=== PATIENT | male | born 1995 ===

== ENCOUNTER 2017-04-30 02:52 | Emergency (ER) | payer MEDICAID ==
[2017-04-30 02:52] VITALS: BMI 23.3
[2017-04-30 02:59] VITALS: RESP 16
[2017-04-30] MEDS ORDERED: Sodium Chloride 0.9% 1,000 ML IV STA (03:14)
--- NOTE | 2017-04-30 04:21 | CT ---
EXAM: CT Head Without Intravenous Contrast CLINICAL HISTORY: 22 years old, male; Pain; Headache TECHNIQUE: Axial computed tomography images of the head/brain without intravenous contrast. All CT scans at this facility use one or more dose reduction techniques, viz.: automated exposure control; ma/kV adjustment per patient size (including targeted exams where dose is matched to indication; i.e. head); or iterative reconstruction technique. Coronal and sagittal reformatted images were created and reviewed. COMPARISON: No relevant prior studies available. FINDINGS: Brain: No intracranial hemorrhage. No mass. No definite edema. Ventricles: No hydrocephalus. Bones/joints: No calvarial fracture. Soft tissues: Unremarkable. Mastoid air cells: No mastoid effusion. IMPRESSION: 1. No definite acute intracranial abnormality. 2. See sinus CT report for additional details.
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
--- NOTE | 2017-04-30 07:06 | ED PDOC ---
- ECG O2 Sat by Pulse Oximetry: 100 (RA) Medical Decision Making Medical Decision Making: recd 7am pending sobriety and re-eval Per report CT brain/Max facial neg for bleed/fracture 1215p improved, gait stable, clear speech DC from ED Disposition - Clinical Impression Clinical Impression: Alcohol abuse with intoxication delirium - POA Present On Arrival: None - Disposition Referrals: Alcoholics Anonymous [Outside] [facility] [Outside] Disposition: Routine/Home Disposition Time: 12:15 Condition: FAIR Instructions: Alcohol Intoxication (ED) Forms: [facility] (Congolese)
[2017-04-30 12:35] VITALS: BP 123/75; PULSE 85; TEMP 98.4
[2017-04-30 13:13] VITALS: O2SAT 100
== END 2017-04-30 12:35 | disposition home or self-care (01) ==
LOC: H.ER 02:52
DX: F10.129 Alcohol abuse with intoxication, unspecified (principal); S09.93XA Unspecified injury of face, initial encounter; Y04.0XXA Assault by unarmed brawl or fight, initial encounter; Y92.89 Other specified places as the place of occurrence of the external cause; D16.4 Benign neoplasm of bones of skull and face
CPT/HCPCS: 70450; 70486; 80320; 99282; J7040

== ENCOUNTER 2017-09-19 04:47 | Emergency (ER) | payer MEDICAID ==
[2017-09-19 04:47] VITALS: BMI 23.3
--- NOTE | 2017-09-19 05:30 | ED PDOC ---
HPI: Psych/Substance Abuse <EnmaMitzishanice Y - Last Filed: 09/19/17 06:51> Chief Complaint (Provider): ETOH abuse History Per: Patient History/Exam Limitations: no limitations Onset/Duration Of Symptoms: Hrs Current Symptoms Are (Timing): Still Present Modifying Factor(s): Alcohol Involuntary Hold By: None Additional Complaint(s): Prem Appiah is a 22 year old male, with no significant past medical history, who was brought to the emergency department via EMS for alcohol intoxication. 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 He admits to drink alcohol. He denies any vomiting, trauma or injuries. No further medical complaints. PMD: None provided. <Joselyn Garcia PA-C - Last Filed: 09/19/17 20:24> Time Seen by Provider: 09/19/17 05:03 Chief Complaint (Nursing): Alcohol Ingestion Past Medical History Vital Signs: Last Vital Signs Temp 97.5 F L 09/19/17 04:58 Pulse 81 09/19/17 04:58 Resp 16 09/19/17 04:58 BP 131/63 09/19/17 04:58 Pulse Ox 95 09/19/17 05:51 <Alie Norwood Y - Last Filed: 09/19/17 06:51> Reviewed: Historical Data, Nursing Documentation, Vital Signs Vital Signs: Last Vital Signs Temp 97.5 F L 09/19/17 04:58 Pulse 81 09/19/17 04:58 Resp 16 09/19/17 04:58 BP 131/63 09/19/17 04:58 Pulse Ox 95 09/19/17 04:58 - Medical History PMH: No Chronic Diseases - Surgical History Surgical History: No Surg Hx - Family History Family History: States: Unknown Family Hx - Social History Current smoker - smoking cessation education provided: No Alcohol: Social Drugs: Denies <Joselyn Garcia PA-C - Last Filed: 09/19/17 20:24> - Home Medications Home Medications: Ambulatory Orders Medication Instructions Recorded Unobtainable [Unobtainable] 09/30/14 - Allergies Allergies/Adverse Reactions: Allergies Allergy/AdvReac Type Severity Reaction Status Date / Time No Known Allergies Allergy Verified 09/19/17 05:00 Review of Systems ROS Statement: Except As Marked, All Systems Reviewed And Found Negative Constitutional: Positive for: Other (ETOH abuse) Gastrointestinal: Negative for: Vomiting <Joselyn Garcia PA-C - Last Filed: 09/19/17 20:24> Physical Exam - Reviewed Nursing Documentation Reviewed: Yes Vital Signs Reviewed: Yes - Physical Exam Comments: GENERAL APPEARANCE: Patient is awake, alert, oriented x3, in no acute distress. ETOH on breath SKIN: Warm, dry; (-) cyanosis HEAD: (-) scalp swelling, (-) scalp tenderness. EYES: (-) conjunctival pallor, (-) scleral icterus, (-) nystagmus. ENMT: Mucous membranes moist. Airway patent: (-) stridor. NECK: (-) tenderness, (-) stiffness, (-) lymphadenopathy. HEART AND CARDIOVASCULAR: (-) irregularity; (-) murmur, (-) gallop. CHEST AND RESPIRATORY: (-) rales, (-) rhonchi, (-) wheezes; breath sounds equal. ABDOMEN: Soft, (-) distention, (-) tenderness, (-) guarding. NEURO AND PSYCH: Mental status as above. Affect: flat glove printer: Intact. Pupils equal and reactive; EOMI; (-) facial asymmetry ; tongue and uvula midline. Strength symmetric. <Joselyn Garcia PA-C - Last Filed: 09/19/17 20:24> - ECG O2 Sat by Pulse Oximetry: 95 (RA) Pulse Ox Interpretation: Normal <Joselyn Garcia PA-C - Last Filed: 09/19/17 20:24> Medical Decision Making Medical Decision Makin:00 -Patient will be signed out to Dr. Andrade, pending sobriety. <Alie Norwood Y - Last Filed: 09/19/17 06:51> Medical Decision Making: Time: 05:03 Initial Impression: ETOH abuse Initial Plan: --Observation until sober --Alcohol serum --Reevaluation 0600 FS 98 Etoh 284 Patient is sleeping comfortably in no acute distress, breathing easy and unlabored, will continue to observe until clinically sober. ----- Scribe Attestation: Documented by Jaime Elam, acting as a scribe for Joselyn Garcia PA-C. Provider Scribe Attestation: All medical record entries made by the Scribe were at my direction and personally dictated by me. I have reviewed the chart and agree that the record accurately reflects my personal performance of the history, physical exam, medical decision making, and the department course for this patient. I have also personally directed, reviewed, and agree with the discharge instructions and disposition. <Joselyn Garcia PA-C - Last Filed: 09/19/17 20:24> Disposition <Alie Norwood - Last Filed: 09/19/17 06:51> - Patient ED Disposition Is Patient to be Admitted: Transfer of Care - Disposition Disposition: Transfer of Care (Case endorsed to Dr. Andrade pending sobriety) Disposition Time: 07:00 <Joselyn Garcia PA-C - Last Filed: 09/19/17 20:24> - Clinical Impression Clinical Impression: Alcohol intoxication - Disposition Referrals: [facility] [Outside] - 09/20/17 Condition: STABLE Additional Instructions: Return if not better in 3 days. Instructions: Alcohol Abuse and Alcoholism (DC)
--- NOTE | 2017-09-19 07:20 | ED PDOC ---
- ECG O2 Sat by Pulse Oximetry: 95 (RA) Medical Decision Making Medical Decision Making: Patient signed out to me @ [address] Norwood, pending sobriety. Scribe Attestation: Documented by Ranjan Argueta, acting as a scribe for John Andrade MD. Provider Scribe Attestation: All medical record entries made by the Scribe were at my direction and personally dictated by me. I have reviewed the chart and agree that the record accurately reflects my personal performance of the history, physical exam, medical decision making, and the department course for this patient. I have also personally directed, reviewed, and agree with the discharge instructions and disposition. 1221: Stable. AAOx3. Pain free. Tolerated PO. Ambulated with no issues. Fu with pcp. Disposition - Clinical Impression Clinical Impression: Alcohol intoxication - POA Present On Arrival: None - Disposition Referrals: [facility] [Outside] - 09/20/17 Disposition: Routine/Home Disposition Time: 12:22 Condition: STABLE Additional Instructions: Return if not better in 3 days. Instructions: Alcohol Abuse and Alcoholism (DC)
[2017-09-19 10:03] VITALS: BP 121/67; PULSE 84; RESP 20; TEMP 97.3
[2017-09-19 12:37] VITALS: O2SAT 95
== END 2017-09-19 12:25 | disposition home or self-care (01) ==
LOC: H.ER 04:47
DX: F10.129 Alcohol abuse with intoxication, unspecified (principal); Y90.8 Blood alcohol level of 240 mg/100 ml or more

== ENCOUNTER 2017-09-29 23:13 | Emergency (ER) | payer MEDICAID ==
[2017-09-29 23:21] VITALS: BP 155/73; PULSE 107; RESP 18; TEMP 98.3; O2SAT 98
--- NOTE | 2017-09-29 23:38 | ED PDOC ---
HPI: Psych/Substance Abuse Time Seen by Provider: 09/29/17 23:27 Chief Complaint (Nursing): Alcohol Ingestion Chief Complaint (Provider): alcohol ingestion History Per: Patient History/Exam Limitations: no limitations Onset/Duration Of Symptoms: Hrs ([employer]) Suicide/Self Injury Attempted (Context): None Involuntary Hold By: None Additional Complaint(s): Prem Appiah is a 22 year old male, with no significant past medical history, who was brought to the emergency department via EMS for public intoxication. Patient admits to drinking tonight but denies any medical complaints. PMD: None provided. Past Medical History Reviewed: Historical Data, Nursing Documentation, Vital Signs Vital Signs: Last Vital Signs Temp 98.3 F 09/29/17 23:19 Pulse 107 H 09/29/17 23:19 Resp 18 09/29/17 23:19 BP 155/73 H 09/29/17 23:19 Pulse Ox 98 09/29/17 23:19 - Medical History PMH: No Chronic Diseases - Surgical History Surgical History: No Surg Hx - Family History Family History: States: No Known Family Hx - Allergies Allergies/Adverse Reactions: Allergies Allergy/AdvReac Type Severity Reaction Status Date / Time No Known Allergies Allergy Verified 09/29/17 23:19 Review of Systems ROS Statement: Except As Marked, All Systems Reviewed And Found Negative Physical Exam - Reviewed Nursing Documentation Reviewed: Yes Vital Signs Reviewed: Yes - Physical Exam Appears: Positive for: Non-toxic, No Acute Distress Head Exam: Positive for: ATRAUMATIC, NORMAL INSPECTION, NORMOCEPHALIC Skin: Positive for: Normal Color, Warm, Dry Eye Exam: Positive for: Normal appearance, EOMI, PERRL Neck: Positive for: Painless ROM Cardiovascular/Chest: Positive for: Regular Rate, Rhythm. Negative for: Murmur Respiratory: Positive for: Normal Breath Sounds. Negative for: Respiratory Distress Gastrointestinal/Abdominal: Positive for: Normal Exam, Soft. Negative for: Tenderness Extremity: Positive for: Normal ROM (upper and lower extremities). Negative for : Deformity Neurologic/Psych: Positive for: Alert, Oriented (x3), Gait (steady), Other ( fluent speech ) - ECG O2 Sat by Pulse Oximetry: 98 (RA) Pulse Ox Interpretation: Normal Medical Decision Making Medical Decision Making: Time: 23:27 Initial Impression: 22 y/o male with alcohol use Initial Plan: --Patient is AAOX3 with steady gait and fluent speech. 23:32 Pt. is currently declining any medical treatment and is clinically sober for discharge. Diagnosis alcohol use. ----- Scribe Attestation: Documented by Jaime Elam, acting as a scribe for Clive Yu MD. Provider Scribe Attestation: All medical record entries made by the Scribe were at my direction and personally dictated by me. I have reviewed the chart and agree that the record accurately reflects my personal performance of the history, physical exam, medical decision making, and the department course for this patient. I have also personally directed, reviewed, and agree with the discharge instructions and disposition. Disposition - Clinical Impression Clinical Impression: Alcohol use - Disposition Disposition: Routine/Home Disposition Time: 23:32 Condition: STABLE Instructions: Alcohol Use - When Is Drinking a Problem? Forms: [employer] (Irish)
== END 2017-09-29 23:31 | disposition home or self-care (01) ==
LOC: H.ER 23:13 → MERGE 23:13 → H.ER 23:31
DX: Z72.89 Other problems related to lifestyle (principal)